=== PATIENT | male | born 1950 | race Caucasian/White ===

== ENCOUNTER 2016-08-03 21:21 | Emergency (ER) | payer BC ==
[~2016-08-03] VITALS: Ht 167.6 cm; Wt 79.1 kg
[2016-08-03 21:24] VITALS: BP 162/80
[2016-08-03] MEDS ORDERED: VALIUM5 MG PO (23:13)
[2016-08-03] MEDS ORDERED: TORADOL10 MG PO (23:13)
[2016-08-03] MEDS ORDERED: DELTASONE20 M1 PO (23:13)
[2016-08-03] MEDS ORDERED: LIDOPATCH1 EACH TD (23:14)
== END 2016-08-03 23:31 | disposition home or self-care (01) ==
LOC: EME 21:21
DX: M54.42 Lumbago with sciatica, left side (principal); Z87.891 Personal history of nicotine dependence
CPT/HCPCS: 99281; 99284; J1885; J3360; J7512